=== PATIENT | female | born 1995 | race African-American/Black ===

== ENCOUNTER 2023-07-10 08:19 | Outpatient (CLI) | payer BC, SELFPAY ==
[2023-07-10 09:08] LABS: Basophils Absolute Auto 0.1 K/mm3 (0.0-0.1); Basophils Percent Auto 0.9 % (0.2-1.2); Eosinophils Absolute Auto 0.1 K/mm3 (0-0.3); Hematocrit 37.5 % (37.0-47.0); Hemoglobin 11.8 g/dL (12.0-15.0); Immature Granulocyte Absolute 0.02 K/mm3 (0.00-0.031); Immature Granulocyte Percent A 0.4 % (0-0.5); Lymphocytes Absolute Auto 2.26 K/mm3 (0.9-3.2); Mean Corpuscular HGB Conc 31.5 g/dl (32-36); Mean Corpuscular Hemoglobin 26.7 pg (26-34); Mean Corpuscular Volume 84.8 fl (80-100); Monocytes Absolute Auto 0.4 K/mm3 (0.1-0.6); Monocytes Percent Auto 7.8 % (2.6-8.5); Neutrophils Absolute Auto 2.6 K/mm3 (1.3-6.7); Neutrophils Percent Auto 47.9 % (45.5-73.1); Platelet Count Result 302 k/mm3 (150-375); Red Blood Count 4.42 M/mm3 (4.2-5.4); White Blood Count 5.5 K/mm3 (4.5-10.0)
[2023-07-10 09:47] LABS: Cholesterol 218 mg/dL (0-200); HDL Direct 68 mg/dL; Triglycerides 109 mg/dL (<150)
[2023-07-10 09:57] LABS: LDL Cholesterol Direct 126 mg/dL
[2023-07-10 11:03] LABS: Hemoglobin A1C 5.2 % (<5.7)
[2023-07-15 07:24] LABS: DHEA-Sulfate 177 mcg/dL (14-349); FSH 7.2 mIU/mL; Progesterone 0.6 ng/mL; Prolactin 16.8 ng/mL
[2023-07-16 08:33] LABS: Testosterone Total 18 ng/dL (2-45)
[2023-07-18 18:14] LABS: Anti Mullerian Hormone,Female 8.37 ng/mL (0.69-13.39)
[2023-07-23 21:58] LABS: Free Insulin 14.9 uIU/mL (1.5-14.9)
[2023-08-02 21:54] LABS: Estradiol, Ultrasensitive 21 pg/mL
== END 2023-07-10 08:20 | disposition home or self-care (01) ==
LOC: ANHLAB 08:25
PROVIDERS: Visit Provider Obstetrics & Gynecology
DX: N92.6 Irregular menstruation, unspecified (principal); L68.0 Hirsutism; E66.3 Overweight
CPT/HCPCS: 36415; 80061; 82627; 82670; 83001; 83036; 83498; 83525; 83527; 84144; 84146; 84403; 84443; 85025